=== PATIENT | female | born 1945 | race Caucasian/White ===

== ENCOUNTER 2025-09-01 09:36 | Outpatient (OUT) | payer MEDICARE, SELFPAY ==
--- OUTSIDE RECORDS SUMMARY | 2025-09-01 09:43 | XMS_ITS | Clinical Summary ---
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
--- NOTE | 2025-09-01 10:01 | XR_ITS ---
The [address] [address] Patient Name: GUSTAVO HARRIS MRN: [id number] date: 1945 Sex: F Assigned Patient Location: LAB Current Patient Location: LAB Accession/Order Number: [id number] Exam Date: 09/01/2025 10:05 Report Date: 09/01/2025 11:11 At the request of: FEI KRISHNAMURTHY MD Procedure: XR knee LT 4V LEFT KNEE - 4 views COMPARISON: None CLINICAL DATA: Chronic left knee pain and instability. No reported injury. AP, lateral and both oblique views were obtained. There is osteopenia. No acute fracture or dislocation is noted. No disproportionate joint space narrowing or prominent hypertrophy is seen. There is an enthesophyte at the insertion of quadriceps tendon. There is no sizable knee effusion or focal soft tissue swelling. XR/XR knee LT 4V IMPRESSION: NO ACUTE BONY FINDINGS. Impression dictated by: Fatimah Dickson M.D. 09/01/2025 11:11 AM Dictation Location: [employer] Electronically authenticated by: [id number] Y Date: 09/01/2025 11:11
[2025-09-01 10:14] LABS: Hematocrit 44.6 % (36.0-48.0); Hemoglobin 14.2 g/dL (12.0-16.0); Immature Granulocytes Abs Auto 0.03 10^3/uL (0.00-0.03); Immature Granulocytes Pct Auto 0.3 % (0.0-0.5); Lymphocytes Absolute Auto 2.1 10^3/uL (1.2-3.8); Mean Corpuscular HGB Conc 31.8 g/dL (29.9-35.2); Mean Corpuscular Hemoglobin 29.0 pg (26.7-34.0); Mean Corpuscular Volume 91.2 fL (81.0-99.0); Platelet Count 281 10^3/uL (150-450); Red Blood Count 4.89 10^6/uL (4.20-5.40); White Blood Count 9.9 10^3/uL (4.0-11.0)
[2025-09-01 10:28] LABS: Alanine Aminotransferase 36 U/L (14-59); Albumin Globulin Ratio 0.8; Albumin Level 3.5 g/dL (3.4-5.0); Alkaline Phosphatase 93 U/L (46-116); Anion Gap 12.0; Aspartate Amino Transferase 24 U/L (15-37); Blood Urea Nitrogen 13.0 mg/dL (7.0-18.0); Calcium 8.8 mg/dL (8.5-10.1); Carbon Dioxide 30.2 mmol/L (21.0-32.0); Chloride 105 mmol/L (98-107); Cholesterol 85 mg/dL (<=200); Estimated GFR (African America 50 (>=60 mL/min/1.73m^2); Estimated GFR (Non-African Ame 42 (>=60 mL/min/1.73m^2); Globulin 4.3 g/dL; Glucose 137 mg/dL (74-106); HDL Cholesterol 31 mg/dL (40-60); Potassium 4.2 mmol/L (3.5-5.1); Sodium 143 mmol/L (136-145); Total Protein 7.8 g/dL (6.4-8.2); Triglycerides 124 mg/dL (<=150); VLDL CHOLESTEROL 24.8 mg/dL
== END 2025-09-01 09:37 | disposition home or self-care (01) ==
LOC: LAB 09:42
PROVIDERS: PCP Family Medicine; Visit Provider Family Medicine
DX: E11.65 Type 2 diabetes mellitus with hyperglycemia (principal); Z79.4 Long term (current) use of insulin; E78.2 Mixed hyperlipidemia; I10 Essential (primary) hypertension; M25.562 Pain in left knee
CPT/HCPCS: 36415; 73564; 80053; 80061; 82043; 82570; 83036; 85025